=== PATIENT | female | born 2000 | race Caucasian/White ===

== ENCOUNTER → 2022-04-21 | Outpatient (CLI) | payer OTHER | LOC: US 13:00 | DX: R10.11 Right upper quadrant pain (principal); K76.0 Fatty (change of) liver, not elsewhere classified | CPT/HCPCS: 76705 ==

== ENCOUNTER → 2022-04-25 | Outpatient (CLI) | payer OTHER | LOC: NM 14:06 | DX: R10.11 Right upper quadrant pain (principal) | CPT/HCPCS: 78227; J2805 ==